=== PATIENT | female | born 1970 | race Caucasian/White ===

== ENCOUNTER → 2018-11-19 | Outpatient (REF) | payer OTHER | LOC: M SFHCPLAZ 16:48 | PROVIDERS: ATTEND Physician Assistant | DX: N30.01 Acute cystitis with hematuria (principal) ==

== ENCOUNTER → 2018-11-26 | Outpatient (CLI) | payer OTHER ==
--- NOTE | 2018-11-26 19:41 | REPVR ---
EXAM: MR Right Upper Extremity Joint Without Contrast, Shoulder EXAM DATE/TIME: 11/26/2018 6:52 PM CLINICAL HISTORY: 48 years old, female; Pain; Upper arm; Right; Additional info: Bursitis of right shoulder TECHNIQUE: Imaging protocol: MR of the Right upper extremity without contrast. Exam focused on the shoulder. COMPARISON: No relevant prior studies available. FINDINGS: TENDONS: Supraspinatus: There is mild tendinosis/partial tear of the bursal surface of the anterior aspect of the distal supraspinatus tendon (coronal T2 image 9 and 10). The articular surface of the supraspinatus tendon is intact. No full thickness tear of the supraspinatus tendon is present. Infraspinatus: Unremarkable. No evidence of tear. Subscapularis: Unremarkable. No evidence of tear. Teres minor: Unremarkable. No evidence of tear. Biceps brachii, long head: Unremarkable. No evidence of tear. LIGAMENTS: Glenohumeral: Unremarkable. Glenoid labrum: High T2 signal undermining the superior glenoid labrum raises the suspicion for superior labral tear. Correlate clinically. Consider MRI arthrogram as clinically indicated. The remainder of the glenoid labrum has a normal appearance. Cartilage: Unremarkable. Bones/joints: There is hypertrophic arthritis of the right acromioclavicular joint. Mild periarticular edema and significant bone marrow edema signal within the distal clavicle and acromion is present and consistent with acute arthritis. This may be secondary to superimposed traumatic, crystal deposition, inflammatory or infectious arthritis. Close clinical correlation is needed. The acromion is slightly laterally downsloping. Fluid: No joint effusion. Muscles: Unremarkable. Soft tissues: There is minimal inflammation of the subacromial/subdeltoid bursa. There multiple small nonspecific right axillary lymph nodes. IMPRESSION: 1. 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 There is an acute arthritis of the right acromioclavicular joint, which may be secondary to superimposed traumatic, crystal deposition, inflammatory or infectious arthritis. Close clinical correlation is needed. 2. Minimal inflammation of the subacromial subdeltoid bursa. 3. Mild tendinosis/partial tear of the bursal surface of the anterior aspect of the supraspinatus tendon. 4. Findings suspicious for tear of the superior glenoid labrum. Correlate clinically. Consider MRI arthrogram as clinically indicated. 5. Small nonspecific right axillary lymph nodes. Correlate with physical exam. Electronically signed by: Aubrey Lake On 11/26/2018 19:41:44 PM
== END ==
LOC: M RAD 18:00
PROVIDERS: ATTEND Orthopaedic Surgery Sports Medicine
DX: M75.51 Bursitis of right shoulder (principal); M19.011 Primary osteoarthritis, right shoulder

== ENCOUNTER → 2020-06-03 | Outpatient (REF) | payer BC, OTHER | LOC: M LAB REF 19:20 | PROVIDERS: ATTEND Dermatology | DX: L57.0 Actinic keratosis (principal) ==

== ENCOUNTER → 2020-11-30 | Outpatient (REF) | payer BC, OTHER | LOC: M LAB REF 13:55 | PROVIDERS: ATTEND Dermatology | DX: S51.851A Open bite of right forearm, initial encounter (principal); W54.0XXA Bitten by dog, initial encounter; Y92.9 Unspecified place or not applicable; Y93.9 Activity, unspecified; Y99.9 Unspecified external cause status ==

== ENCOUNTER → 2021-06-13 | Outpatient (REF) | payer BC, OTHER | LOC: M SFHCDERM 14:00 | PROVIDERS: ATTEND Physician Assistant | DX: L72.0 Epidermal cyst (principal) ==

== ENCOUNTER → 2021-07-31 | Outpatient (CLI) | payer BC, OTHER ==
[~2021-07-31] MED LIST: CETI10CH PO; CYCL-707 PO; ESTR2TAB3 PO; HYDR-3363 PO; OMEP1CAP73 PO; PLAQ200T4 PO; PRED5PAK2 PO
== END ==
LOC: M LABSMTC 09:19
PROVIDERS: ATTEND Anesthesiology
DX: Z01.812 Encounter for preprocedural laboratory examination (principal); Z20.822 Contact with and (suspected) exposure to COVID-19

== ENCOUNTER 2021-08-04 07:05 | Day surgery (SDC) | payer OTHER ==
[~2021-08-04] VITALS: Ht 160 cm; Wt 66.0 kg
[~2021-08-04 07:05] MED LIST changes: +LIDOCAINE 1% MDV 20ML VIAL SQ PRN; +LR 1,000 ML IV ONE; +ceFAZolin SOD 2 GM in IV 1 EA IV ONE
[2021-08-04] MEDS ORDERED: dexameTHASONE 4 MG/ML 1ML VIAL (J1100 PER 1MG) As Ordered ONE ×2 (08:11→08:16)
[2021-08-04] MEDS ORDERED: LIDOCAINE 2% MDV 20ML VIAL As Ordered ONE (08:11)
[2021-08-04] MEDS ORDERED: GENTAMICIN SULF 80MG/2ML VIAL As Ordered ONE (08:11)
[2021-08-04] MEDS ORDERED: BUPIVACAINE HCL 0.5% 30ML VIAL As Ordered ONE (08:11)
[2021-08-04] MEDS ORDERED: propofoL 500 MG/50 ML VIAL As Ordered ONE (08:15)
[2021-08-04] MEDS ORDERED: MIDAZOLAM INJ 2MG/2ML VIAL (J2250 PER 1MG) As Ordered ONE (08:16)
[2021-08-04] MEDS ORDERED: fentaNYL 100 MCG/2 ML INJECTION As Ordered ONE (08:16)
[2021-08-04] MEDS ORDERED: ONDANSETRON 4MG/2ML VIAL As Ordered ONE (08:16)
[2021-08-04] MEDS ORDERED: LIDOCAINE 2% 100MG/5ML SDV (FOR ANES.) As Ordered ONE (08:16)
[2021-08-04] MEDS ORDERED: KETOROLAC 60MG 2ML VIAL As Ordered ONE (10:00)
[2021-08-04 10:53] VITALS: BP 112/60
== END 2021-08-04 10:58 | disposition home or self-care (01) ==
LOC: M SDC 07:05
PROVIDERS: ATTEND Podiatrist
DX: M20.12 Hallux valgus (acquired), left foot (principal); M21.622 Bunionette of left foot; K21.9 Gastro-esophageal reflux disease without esophagitis; M32.9 Systemic lupus erythematosus, unspecified; Z92.21 Personal history of antineoplastic chemotherapy; Z87.891 Personal history of nicotine dependence; Z79.899 Other long term (current) drug therapy
CPT/HCPCS: 28110; 29826; 73630; 76000; 88300; C1713; J0690; J1100; J1580; J1885; J2250; J2405; J3010

== ENCOUNTER → 2022-07-23 | Outpatient (REF) | payer OTHER ==
[~2022-07-23] MED LIST changes: -LIDOCAINE 1% MDV 20ML VIAL SQ PRN; -LR 1,000 ML IV ONE; -ceFAZolin SOD 2 GM in IV 1 EA IV ONE
== END ==
LOC: M SFHCDERM 14:44
PROVIDERS: ATTEND Physician Assistant
DX: L82.0 Inflamed seborrheic keratosis (principal)

== ENCOUNTER → 2024-06-16 | Outpatient (CLI) | payer OTHER | LOC: M PLAIMG 06:55 | PROVIDERS: ATTEND Nurse Practitioner | DX: M25.562 Pain in left knee (principal); M25.462 Effusion, left knee; M17.12 Unilateral primary osteoarthritis, left knee ==

== ENCOUNTER → 2024-06-17 | Outpatient (CLI) | payer OTHER | LOC: M PLAIMG 13:18 | PROVIDERS: ATTEND Physician Assistant | DX: K59.00 Constipation, unspecified (principal); K59.1 Functional diarrhea; R11.2 Nausea with vomiting, unspecified; R14.3 Flatulence; R14.0 Abdominal distension (gaseous) ==

== ENCOUNTER → 2024-06-25 | Outpatient (CLI) | payer OTHER ==
[2024-06-25 15:05] LABS: HEMATOCRIT 37.4 % (36.0-47.0); HEMOGLOBIN 12.5 g/dl (12.0-15.5); MEAN CORPUSCULAR HEMOGLOBIN 32.1 pg (27.0-33.0); MEAN CORPUSCULAR HGB CONC 33.4 g/dl (32.0-36.5); MEAN CORPUSCULAR VOLUME 95.9 fl (80.0-96.0); PLATELET COUNT, AUTOMATED 325 10^3/uL (150-450)
[2024-06-25 15:24] LABS: LIPASE 41 U/L (12-53)
[2024-06-25 15:26] LABS: ALBUMIN 3.5 G/DL (3.2-5.2); ALKALINE PHOSPHATASE 67 U/L (35-104); ALT/SGPT 17 U/L (7.0-40); AST/SGOT 15 U/L (<34); BILIRUBIN,DIRECT < 0.1 MG/DL (<0.4); BILIRUBIN,TOTAL 0.3 MG/DL (0.3-1.2); TOTAL PROTEIN 6.7 G/DL (5.7-8.2)
== END ==
LOC: M WUC 12:40
PROVIDERS: ATTEND Nurse Practitioner Family
DX: K31.84 Gastroparesis (principal); K21.9 Gastro-esophageal reflux disease without esophagitis; Z80.0 Family history of malignant neoplasm of digestive organs; R10.31 Right lower quadrant pain; Z86.0101 Personal history of adenomatous and serrated colon polyps; R10.11 Right upper quadrant pain